=== PATIENT | female | born 1985 | race Caucasian/White ===

== ENCOUNTER 2017-07-02 17:49 | Emergency (ER) | payer MEDICAID ==
--- NOTE | 2017-07-02 18:37 | ED Physician Chart ---
ED Chief Complaint/HPI - Patient Information Allergies:: Allergies Allergy/AdvReac Type Severity Reaction Status Date / Time hydromorphone [From Dilaudid] Allergy Verified 07/02/17 18:16 morphine Allergy Verified 07/02/17 18:16 Vitals:: Vital Signs - 8 hr 07/02/17 18:16 Temp 98.8 F HR 71 RR 18 BP 125/53 O2 Sat % 97 <Gary Galvez - Last Filed: 07/02/17 18:31> - Patient Information Date Seen:: 07/02/17 Time Seen:: 18:30 Chief Complaint:: LACERATION TO HER TO HER RIGHT HAND ABOUT 30 MINUTES PRIOR TO ADM History of Present Illness:: THE PT WAS PREPARING DINNER WHEN SHE CUT HER RIGHT HANDWHILE WORKINGWANT AN AVOCADOTO REMOVE THE PIT.SHE HAD MODERATE PAININ BLEEDINGOF THE RIGHT-HANDAT THE BASE OFTHE MIDDLE FINGER. Allergies:: Allergies Allergy/AdvReac Type Severity Reaction Status Date / Time hydromorphone [From Dilaudid] Allergy Verified 07/02/17 18:16 morphine Allergy Verified 07/02/17 18:16 <Juan Rowe - Last Filed: 07/03/17 12:15> ED Review of Systems - Review of Systems General/Constitutional: No fever, No chills, No weakness, No diaphoresis Skin: Other (LACERATIONRIGHT HAND) Head: No headache Eyes: No diplopia ENT: No earache, No sore throat Neck: No neck pain, No swelling, No stiffness Cardio Vascular: No chest pain, No palpitations Pulmonary: No SOB, No cough, No wheezing GI: No nausea, No vomiting, No pain, No hematemesis (I'M JUST DOING THE REVIEWS JUST TO AND) G/U: No dysuria (THIS MARKING YOU DON'T LIKE ITTHE WHATNOT YET), No hematuria Musculoskeletal: Bone or joint pain, No muscle pain Endocrine: No polydipsia Psychiatric: No prior psych history, No depression Neurological: No weakness, Paresthesia (THE PATIENT HAS NUMBNESSOF THE DISTAL RIGHTMIDDLE FINGER.), No headache, No seizure <Juan Rowe - Last Filed: 07/03/17 12:15> Family Medical History - Family Member Mother History Unknown: Yes <Gary Galvez - Last Filed: 07/02/17 18:31> ED Physical Exam - Physical Examination General/Constitutional: Awake, Well-developed, well-nourished, Non-toxic appearing, Ambulatory Head: Atraumatic Eyes: PERRL, EOMI Skin: No rash ENMT: External ears, nose nl Other Neck comments:: NECK NOT EXAMINEDDOODLE LOCALIZED NATURE OF THE CHIEF COMPLAINT LIMITED TO THE AREAOF THE RIGHT-HAND Other Respiratory comments:: NO RESPIRATORY DISTRESS AND BREATHING NORMALLY. Other Cardio Vascular comments:: NOT EXAMINED DUE TO LIMITED NATURE OF THE CHIEF COMPLAINT Other GI comments:: NOT EXAMINED DUE TO LIMITED NATURE OF THE CHIEF COMPLAINT Other comments:: NOT EXAMINED DUE TO LIMITED NATURE OF THE CHIEF COMPLAINT Other Extremities comments:: THERE IS A 3- 4 MM LACERATION ON THE ROWE SURFACE OF THE RIGHT-HAND AT THE BASE OF THE MIDDLE FINGER.TENDON FUNCTION IS NORMAL.NORMAL CAPILLARY REFILL IN THE NAILBED. THERE IS DECREASED SENSATIONTO LIGHT TOUCH IN THE DISTAL RIGHT MIDDLE FINGER. THERE IS MINIMAL BLEEDING AT THE SITE OF THE LACERATION. Neuro/Psych: Alert/oriented, Judgement/insight normal, Mood normal, Normal gait Misc: Normal back <Juan Rowe - Last Filed: 07/03/17 12:15> ED Labs/Radiology/EKG Results - Lab Results Results: NO RADIOGRAPHIC OR LABORATORY STUDIES INDICATED. <Juan Rowe - Last Filed: 07/03/17 12:15> ED Assessment - Assessment General Assessment: MDM NO FOREIGN BODY BASED ON THE MECHANISMOF THE INJURY AND NEGATIVE EXPLORATION OF THE WOUND. NO VASCULAR COMPROMISE BASED ON INTACT DISTAL CAPILLARY REFILL. - Procedures Informed Consent: Procedure/risk/benefits explained by MD: Yes Laceration Type:: Simple Wound Length: 0.4 cm Prep/Irrigation:: The wound was irrigatedWas 75 mLNormal sailing The patient tolerated the procedure well. Inspection: No dirt/debris, Bases & margins visual, NO FB Local Anesthetic:: 2 cc 1% LidocaineLocal anesthesia.IrrigationOf laceration With Normal saline Suture Type and #: 2 INTERRUPTED 4-O Proline SUTURES <Juan Rowe - Last Filed: 07/03/17 12:15> ED Septic Shock - <6hrs of presentation: Vital Signs: Vital Signs - 8 hr 07/02/17 18:16 Temp 98.8 F HR 71 RR 18 BP 125/53 O2 Sat % 97 <Gary Galvez - Last Filed: 07/02/17 18:31> - . Is Septic Shock (SBP<90, OR Lactate>4 mmol\L) present?: No <Juan Rowe - Last Filed: 07/03/17 12:15> ED Discharge Plan <Gary Galvez - Last Filed: 07/02/17 18:31> <Juan Rowe - Last Filed: 07/03/17 12:15> - Patient Disposition Admit/Discharge/Transfer: PT DISCHARGED HOME Condition at Disposition: Stable Instructions: Laceration Care, Adult, [id number]
== END 2017-07-02 19:20 | disposition home or self-care (01) ==
LOC: ER 17:49
DX: S61.411A Laceration without foreign body of right hand, initial encounter (principal); Z88.5 Allergy status to narcotic agent; Z88.8 Allergy status to other drugs, medicaments and biological substances; W45.8XXA Other foreign body or object entering through skin, initial encounter; Y93.G3 Activity, cooking and baking; Y92.89 Other specified places as the place of occurrence of the external cause; Y99.8 Other external cause status
CPT/HCPCS: 12001; Z7502; Z7610